=== PATIENT | male | born 1965 | race Caucasian/White ===

== ENCOUNTER 2024-05-18 08:38 | Emergency (ER) | payer OTHER ==
[2024-05-18 08:51] VITALS: BP 106/54; PULSE 77; RESP 18; TEMP 98; BMI 38.3
[2024-05-18] MEDS ORDERED: ACETAMINOPHEN 500 MG TABLET (FP) ONE (09:55)
[2024-05-18] MEDS: ACETAMINOPHEN 500 MG TABLET (FP) PO ONE (09:56)
== END 2024-05-18 11:26 | disposition home or self-care (01) ==
LOC: JER 08:38
DX: M79.672 Pain in left foot (principal)
CPT/HCPCS: 73610-TC-LT-FY; 73630-TC-LT; 93005; 93010; 99284-25

== ENCOUNTER 2024-07-05 22:32 | Emergency (ER) | payer OTHER ==
[2024-07-05 22:44] VITALS: BP 134/86; PULSE 97; RESP 18; TEMP 98.6; BMI 37.6
[2024-07-05] MEDS ORDERED: KETOROLAC TROMETHAMINE 30 MG/1 ML VIAL ONE (23:24)
[2024-07-05] MEDS: KETOROLAC TROMETHAMINE 30 MG/1 ML VIAL IM ONE (23:27)
== END 2024-07-06 00:08 | disposition home or self-care (01) ==
LOC: JER 22:32 → JERFT 22:32 → JER 07-06 00:08
PROC: 3E0133Z Introduction of Anti-inflammatory into Subcutaneous Tissue, Percutaneous Approach (ICD-10-PCS; principal; 2024-07-05)
DX: M25.561 Pain in right knee (principal)
CPT/HCPCS: 73562-TC-RT-FY; 99284-25

== ENCOUNTER 2025-04-02 07:43 | Emergency (ER) | payer BC, OTHER ==
[2025-04-02 07:54] VITALS: BP 117/69; PULSE 89; RESP 20; TEMP 97.9; BMI 39.7
[2025-04-02] MEDS ORDERED: ACETAMINOPHEN 500 MG TABLET (FP) ONE (08:49)
[2025-04-02] MEDS ORDERED: LIDOCAINE 4% PATCH TP ONE (08:49)
[2025-04-02] MEDS: LIDOCAINE 4% PATCH TP ONE (08:52)
[2025-04-02] MEDS: ACETAMINOPHEN 500 MG TABLET (FP) PO ONE (08:52)
[2025-04-02] MEDS ORDERED: IBUPROFEN 400 MG TABLET (FP) PO ONE (10:59)
[2025-04-02] MEDS: IBUPROFEN 400 MG TABLET (FP) PO ONE (11:00)
[2025-04-02] MEDS ORDERED: LIDOCAINE PATCH REMOVAL MC ONE (22:00)
== END 2025-04-02 11:10 | disposition home or self-care (01) ==
LOC: JERFT 07:43
DX: M17.12 Unilateral primary osteoarthritis, left knee (principal); M25.562 Pain in left knee; X50.3XXA Overexertion from repetitive movements, initial encounter
CPT/HCPCS: 73562-TC-LT-FY; 99283-25